=== PATIENT | male | born 1990 | race Caucasian/White ===

== ENCOUNTER 2016-06-27 06:34 | Emergency (ER) | payer SELFPAY ==
[~2016-06-27] VITALS: Ht 165.1 cm; Wt 55.0 kg
[2016-06-27 06:35] VITALS: BP 144/97; PULSE 81; RESP 14; TEMP 98.2; O2SAT 99
--- NOTE | 2016-06-27 08:44 | PD ---
HPI Chief Complaint: Complaint Time Seen by Provider: 08:29 Travel History International Travel<30 days: Yes Contact w/Intl Traveler<30days: Yes Name of Country Traveled to: [facility] Traveled to known affect area: No History of Present Illness HPI The patient is a 25-year-old male who presents to the emergency department for genitourinary symptoms. The patient states he was getting a massage several days ago, was lying on his stomach, when he obtained an erection. The patient states he then went home and masturbating, had no difficulty with ejaculation. However, the patient states he occasionally has "throbbing", and the area between the scrotum and the anus. He denies any trauma to the affected area and denies any dysuria, frequency, or urgency. The patient also states he is able to obtain an erection, however, he does not feel like the erection is completely and is unable to maintain an erection for prolonged time, however, is able to masturbate without difficulty to complete ejaculation. The patient denies any accompanying nausea, vomiting, or abdominal pain. He denies any swelling or redness in the affected area. Symptoms are mild, started after he obtained a massage, and there are no current alleviating factors. His symptoms are intermittent. [facility] Past Medical History Medical History: Denies Significant Hx Tetanus Vaccination: Unknown Influenza Vaccination: Yes Past Surgical History Surgical History: No Previous Surgery Social History Alcohol Use: No Tobacco Use: No Substance Use: No Allergies-Medications (Allergen,Severity, Reaction): Coded Allergies: No Known Allergies (Unverified , 06/27/16) Review of Systems General / Constitutional: No: Fever Gastrointestinal: No: Nausea, Vomiting, Abdominal Pain Genitourinary: Positive: Other (as noted in the history of present illness), No: Urgency, Frequency, Dysuria, Hematuria Skin: No Rash Physical Exam Narrative GENERAL: Awake, alert, pleasant 25-year-old male who appears his stated age and is in no acute respiratory distress. SKIN: Warm and dry. HEAD: Atraumatic. Normocephalic. GASTROINTESTINAL: Abdomen soft, non-tender, nondistended. Genitourinary: Circumcised phallus. Both testicles are descended. No tenderness over the phallus or scrotum. The perineal area reveals no erythema or swelling, nontender on palpation. Back: No CVA tenderness. MUSCULOSKELETAL: No obvious deformities. No clubbing. No cyanosis. No edema. NEUROLOGICAL: Awake and alert. No obvious cranial nerve deficits. Motor grossly within normal limits. Normal speech. PSYCHIATRIC: Appropriate mood and affect; insight and judgment normal. Data Data Last Documented VS Vital Signs Date Time Temp Pulse Resp B/P Pulse Ox O2 Delivery O2 Flow Rate FiO2 06/27/16 06:35 98.2 81 14 144/97 99 Room Air Orders Urinalysis - C+S If Indicated (06/27/16 08:39) Labs Laboratory Tests Test 06/27/16 08:45 Urine Color YELLOW Urine Turbidity CLEAR Urine pH 6.0 Urine Specific [place] 1.018 Urine Protein NEG mg/dL Urine Glucose (UA) NEG mg/dL Urine Ketones NEG mg/dL Urine Occult Blood NEG Urine Nitrite NEG Urine Bilirubin NEG Urine Urobilinogen LESS THAN 2.0 MG/DL Urine Leukocyte Esterase NEG Urine RBC 1 /hpf Microscopic Urinalysis Comment CULT NOT INDICATED MDM Medical Decision Making Medical Screen Exam Complete: Yes Emergency Medical Condition: Yes Medical Record Reviewed: Yes Interpretation(s) Laboratory Tests Test 06/27/16 08:45 Urine Color YELLOW Urine Turbidity CLEAR Urine pH 6.0 Urine Specific [place] 1.018 Urine Protein NEG mg/dL Urine Glucose (UA) NEG mg/dL Urine Ketones NEG mg/dL Urine Occult Blood NEG Urine Nitrite NEG Urine Bilirubin NEG Urine Urobilinogen LESS THAN 2.0 MG/DL Urine Leukocyte Esterase NEG Urine RBC 1 /hpf Microscopic Urinalysis Comment CULT NOT INDICATED Differential Diagnosis Differential diagnosis includes [place], pilonidal cyst, UTI, epididymitis, STI, normal exam. Narrative Course The patient's physical examination is unremarkable. There is no evidence of erythema, swelling, or tenderness over the peroneal area, I do not believe the patient has an abscess or infection in the affected area. UA was sent to lab. UA is negative. Patient is stable for outpatient follow-up with her primary physician and/or urology if symptoms persist. Diagnosis Primary Impression: Perineal irritation Patient Instructions: General Instructions Additional Instructions: Follow-up with your primary physician and/or urology if symptoms persist. Med/Other Pt SpecificInfo: No Change to Meds Disposition: 01 DISCHARGE HOME Condition: Stable Elmo Soto MD Jun 27, 2016 08:44
[2016-06-27 09:11] LABS: BLOOD, URINE NEG (NEG); GLUCOSE,URINE NEG (NEG); KETONE, URINE NEG (NEG); NITRITE,URINE NEG (NEG); URINE COLOR YELLOW (YELLW/STRAW)
[2016-06-27 09:14] LABS: COMMENT (UR) CULT NOT INDICATED; CULTURE IF INDICATED CULT NOT INDICATED
== END 2016-06-27 10:09 | disposition home or self-care (01) ==
LOC: NEPE 06:34
DX: L29.3 Anogenital pruritus, unspecified (principal)
CPT/HCPCS: 81001; 99283